=== PATIENT | male | born 1990 | race Two or more races ===

== ENCOUNTER 2016-08-22 16:22 | Emergency (ER) | payer SELFPAY | END 2016-08-22 16:38 | disposition home or self-care (01) | LOC: SED 16:22 | DX: S39.012A Strain of muscle, fascia and tendon of lower back, initial encounter (principal); X58.XXXA Exposure to other specified factors, initial encounter; Y92.89 Other specified places as the place of occurrence of the external cause | CPT/HCPCS: 96372; 99283; J1885 ==